=== PATIENT | male | born 1975 | race Caucasian/White ===

== ENCOUNTER 2016-09-16 23:37 | Emergency (ER) | payer OTHER ==
[~2016-09-16] VITALS: Ht 190.5 cm; Wt 101.8 kg
[~2016-09-16 23:37] MED LIST: CHOL200016 PO; OXYC1TAB24 PO; TAMS0.4C98 PO
[2016-09-17 00:13] VITALS: BP 121/85; PULSE 78; RESP 18; O2SAT 95
--- NOTE | 2016-09-17 01:43 | ED.REPORT ---
HPI-Abd Pain M 40 and Over Date of Service Sep 17, 2016 ED Provider: Soy Shukla MD Patient is a 41 year old male who presents to the ED reporting 4 episodes of diarrhea over the last day. Patient was just got home from a ten day vacation to the [facility] where he stayed at an all[place]inclusive resort and consumed food from the local markets. He made sure to only drink bottled water. Just previous to arriving at the ED, he experienced an episode of uncontrollable shakiness, chills, and diaphoresis. He is not currently experiencing any symptoms. Pt says his stomach feels extremely "gassy and bubbly." He has been eating and drinking normally. Nursing Notes Stated Complaint: SEVERE SHAKING/ DIARRHEA Chief Complaint: Male Abdominal Pain Nursing Notes Reviewed: Yes Allergies: Coded Allergies: No Known Allergies (Unverified Allergy, Unknown, 01/02/15) Scheduled Cholecalciferol (Vitamin D3) (Vitamin D) 2,000 Unit Tablet 2,500 UNIT PO DAILY Tamsulosin (Flomax) 0.4 Mg Capsule 0.4 MG PO DAILY Scheduled PRN oxyCODONE-Acetaminophen 5-325 mg (oxyCODONE-Acetaminophen 5-325 mg) 1 Each Tablet 1-2 TAB PO Q4H PRN PRN For Pain General Time Seen by MD: 01:43 Chief Complaint Diarrhea moderate Hx Obtained From: Patient Arrived By: Walk-in Sudden in Onset?: Yes Onset Occurred: Yesterday Symptom Duration: Since onset Severity: Current: No pain currently Recent Healthcare: No recent doctor visit, No recent hospitalization Similar Sx Previous: No Past Medical History Past Medical History Notes: PCP: Dr. Awan Past Medical History Denies Past Surgical History Reports: Tonsillectomy Smoking History Never Smoker Social History Alcohol Use: "Social" Drug Use: Denies drug use Other Social History: Lives alone Ambulatory Status Independent Review of Systems Constitutional: Reports: Chills GI: Reports: Diarrhea Complete sys rev & neg: except as marked. Skin: Reports Diaphoresis Neurologic: Reports: Shaking Physical Exam Initial Vital Signs Vital Signs (First) Date Time Temp Pulse Resp B/P Pulse Ox O2 Delivery O2 Flow Rate FiO2 09/17/16 00:13 36.3 78 18 121/85 95 Room Air Initial VS: Reviewed, Vital signs normal Head / Eyes: Atraumatic, Normocephalic, PERRL ENT: Mucous membranes moist, Conjunctiva normal, No scleral icterus Neck: Supple, Non-tender, Full range of motion Lymphatic: No lymphadenopathy Extremities: Vascular intact, Neuro intact, No swelling, No tenderness Skin: Warm, Dry, No cyanosis Neurologic: Alert, Oriented, Nonfocal Psychiatric: Mood/affect normal, Behavior normal, Normal thought content General/Constitutional: Awake, Alert, No acute distress, Well appearing, Well developed, Well hydrated, Cooperative, Not toxic appearing Respiratory / Chest: Atraumatic, Breath sounds NL, Breath sounds = bilat, No respiratory distress, No rales, No rhonchi, No wheezing, No retractions Cardiovascular: Heart rate NL, Regular rhythm, Heart sounds NL, No gallop, No murmurs, No rubs Abdomen: Atraumatic, Soft, Non-tender non tender active bowel tones Back: Atraumatic, Inspection NL, Full range of motion, Painless range of motion , Non-tender, No midline vertebral tend, No CVA tenderness Re-Eval/Medical Decision Med Decision/Clinical Course 41-year-old male who recently has traveled to the [facility] in [place]. He now has intermittent abdominal cramping and diarrhea. He has taken some Imodium to help control symptoms. He also had shaking riders. Right now he feels fairly well and is unable to give us a sample. He will be sent home with a stool collection kit and plan to follow up with his primary doctor. Time of Eval: 02:09 Patient Status: Condition unchanged Re-Evaluation/Progress Note: Pt rechecked. Pt is informed of diagnosis and intended plan. All questions are addressed. Pt understands and agrees with the treatment plan. Counseled Regarding: Diagnosis, Lab results, Need for follow-up, When/why to return to ED Discharge & Departure Primary Impression: Diarrhea Disposition: Home Vital Signs - All Vital Signs Date Time Temp Pulse Resp B/P Pulse Ox O2 Delivery O2 Flow Rate FiO2 09/17/16 02:22 36.8 72 16 120/82 96 Room Air 09/17/16 00:13 36.3 78 18 121/85 95 Room Air )( All Prior VS Reviewed: Yes Condition: Stable Patient Instructions: Acute Diarrhea (ED) Additional Instructions: Because of the recent travel, if your diarrhea is persistent you need to submit a stool specimen for testing. Good handwashing. Follow up with your regular provider if the diarrhea persists, especially if there is bloody diarrhea or mucus. Imodium as needed. Referrals: Ej Varghese DO (PCP) Lindsey Attestation Portions of this note were transcribed by Lobo Gonzales. I, Dr. Shukla personally performed the history, physical exam and medical decision-making; I reviewed and confirmed the accuracy of the information in the transcribed note. Signed by: Lindsey Joyner, 09/17/16 0210 copies to: Ej Varghese Howard L MD Sep 17, 2016 01:43 LOBO GONZALES Sep 17, 2016 02:02
[2016-09-17 02:22] VITALS: BP 120/82; PULSE 72; RESP 16; O2SAT 96
== END 2016-09-17 02:24 | disposition home or self-care (01) ==
LOC: SED 23:37
DX: R19.7 Diarrhea, unspecified (principal); R25.1 Tremor, unspecified; R61 Generalized hyperhidrosis; R14.0 Abdominal distension (gaseous); R10.9 Unspecified abdominal pain